=== PATIENT | male | born 1995 | race Caucasian/White ===

== ENCOUNTER 2017-09-02 22:13 | Emergency (ER) | payer SELFPAY ==
[~2017-09-02] VITALS: Ht 182.9 cm; Wt 146.5 kg
[~2017-09-02 22:13] MED LIST: ALB18R INH; BENZ100C4 PO; HYDR-4309 PO; PROM-110 PO; SULF-198 PO
--- NOTE | 2017-09-02 22:17 | ER Report ---
History and Physical Time Seen By MD: 22:17 HPI/ROS CHIEF COMPLAINT: Cough, shortness of breath HISTORY OF PRESENT ILLNESS: 21-year-old male. The history of asthma, now ill for 3 days with a productive cough of colored sputum and increased work effort. On arrival. He's having severe difficulty breathing. His pulse ox is 88%. He denies exposure to ill contacts. He is a former smoker who is using vape pen now. REVIEW OF SYSTEMS: Respiratory: As above Cardiovascular: No chest pain, no palpitations. Gastrointestinal: No vomiting, no abdominal pain. Musculoskeletal: No back pain. Allergies: Coded Allergies: No Known Drug Allergies (Unverified , 09/02/17) Home Meds Active Scripts Albuterol Sulfate 90 Mcg/Act (PROAIR HFA 90 MCG/ACT) 8.5 Gm Hfa.aer.ad, 2 PUFF IH Q4-6H Y for asthma symptoms, #1 INHALER 1 Refill Prov:ANUPAMA HERNÁNDEZ DO 09/02/17 Prednisone (PREDNISONE) 20 Mg Tablet, 20 MG PO QDAY for reduce lung inflammation , #9 2 tablets by mouth daily 3 days then 1 by mouth daily 3 days Prov:ANUPAMA HERNÁNDEZ 09/02/17 Promethazine HCl/Codeine (Promethazine-Codeine Syrup) 6.25 Mg-10 Mg/5 Ml Syrup, 5-10 ML PO Q4H Y for cough or pain reduction, #120 Prov:ANUPAMA HERNÁNDEZ 09/02/17 Cefuroxime Axetil (CEFUROXIME) 500 Mg Tablet, 500 MG PO BID for infection, #14 TAB Prov:ANUPAMA HERNÁNDEZ DO 09/02/17 Discontinued Scripts Sulfamethoxazole/Trimet 800-160 Mg Tab (BACTRIM DS TABLET) 1 Each Tablet, 1 TAB PO Q12H, #20 TAB 0 Refills Prov:KATHY ROGERS MD 12/19/16 Reviewed Nurses Notes: Yes Old Medical Records Reviewed: Yes Hx Substance Use Disorder: No Constitutional Vital Sign - Last 24 Hours 09/02/17 09/02/17 09/02/17 09/02/17 22:15 22:16 22:30 22:35 Temp 98.9 Pulse 112 106 Resp 22 26 B/P (MAP) 154/91 (112) 154/91 126/93 (104) Pulse Ox 86 85 89 O2 Delivery Room Air 09/02/17 09/02/17 09/02/17 09/02/17 22:35 22:42 22:45 23:00 Pulse 103 106 102 Resp 16 16 29 B/P (MAP) 136/76 (96) Pulse Ox 98 09/02/17 09/02/17 09/03/17 23:15 23:30 00:00 Pulse 99 95 95 Resp 14 B/P (MAP) 124/78 (93) 140/86 (104) Pulse Ox 88 87 93 O2 Delivery Room Air Physical Exam Vital signs stable, afebrile, pulse ox normal General Appearance: The patient is alert, has no immediate need for airway protection and no current signs of toxicity. HEENT: Pupils equal and round no injection. TMs normal, oropharynx with moderate erythema, no exudate or petechiae Respiratory: Chest is non tender, expiratory wheezing, no Rales or rhonchi Cardiac: regular rate and rhythm Gastrointestinal: Abdomen is soft and non tender, no masses, bowel sounds normal. Musculoskeletal: Neck: Neck is supple and non tender. No lymphadenopathy Extremities have full range of motion and are non tender. Skin: No rashes or lesions. DIFFERENTIAL DIAGNOSIS: After history and physical exam differential diagnosis was considered for shortness of breath including but not limited to pulmonary infectious process, COPD, asthma, pulmonary embolus and congestive heart failure. Medical Decision Making Data Points Laboratory Hematology Test 09/02/17 23:01 Influenza Virus Type A (PCR) Negative (NEGATIVE) Influenza Virus Type B (PCR) Negative (NEGATIVE) Chemistry Test 09/02/17 23:01 Influenza Virus Type A (PCR) Negative (NEGATIVE) Influenza Virus Type B (PCR) Negative (NEGATIVE) EKG/Imaging Imaging X-ray: Two-view chest x-ray was obtained. I viewed the images myself on the PACS system. My interpretation of the images is: No infiltrate, no effusion, normal mediastinum. The radiologist interpretation had no clinically significant variation from this interpretation. ED Course/Re-evaluation ED Course Patient was minute to an examination room. H&P was done. The dental diagnoses was considered. Patient with severe asthma exacerbation with bronchitis and productive cough of green sputum. He has increased work of breathing. He has expiratory wheezing on examination. He is much improved after prednisone 60 mg by mouth and 2 DuoNeb. Chest x-ray shows no obvious infiltrate. His saturations improved his work of breathing is much improved. Patient be discharged home on Ceftin, prednisone and Phenergan with codeine syrup to suppress the cough. He is given a refill of his of 8 inhalers. He is advised to follow-up with primary care if unimproved in 3-5 days. Decision to Disposition Date: Sep 02, 2017 Decision to Disposition Time: 23:25 Depart Departure Latest Vital Signs Vital Signs Date Time Temp Pulse Resp B/P (MAP) Pulse Ox O2 Delivery O2 Flow Rate FiO2 09/03/17 00:00 95 14 140/86 (104) 93 Room Air 09/02/17 22:16 98.9 Impression: Primary Impression: Acute bronchitis Additional Impressions: Asthma exacerbation Hypoxia Condition: Improved Disposition: HOME OR SELF-CARE New Scripts Albuterol Sulfate 90 Mcg/Act (PROAIR HFA 90 MCG/ACT) 8.5 Gm Hfa.aer.ad 2 PUFF IH Q4-6H Y for asthma symptoms, #1 INHALER 1 Refill Prov: ANUPAMA HERNÁNDEZ DO 09/02/17 Prednisone (PREDNISONE) 20 Mg Tablet 20 MG PO QDAY for reduce lung inflammation, #9 2 tablets by mouth daily 3 days then 1 by mouth daily 3 days Prov: ANUPAMA HERNÁNDEZ DO 09/02/17 Promethazine HCl/Codeine (Promethazine-Codeine Syrup) 6.25 Mg-10 Mg/5 Ml Syrup 5-10 ML PO Q4H Y for cough or pain reduction, #120 Prov: ANUPAMA HERNÁNDEZ DO 09/02/17 Cefuroxime Axetil (CEFUROXIME) 500 Mg Tablet 500 MG PO BID for infection, #14 TAB Prov: ANUPAMA HERNÁNDEZ DO 09/02/17 Patient Instructions: Acute Bronchitis (ED), Asthma (ED) Additional Instructions: Take DayQuil in the morning and afternoon and NyQuil at bedtime Follow-up with your primary care if unimproved in 3-5 days or go to the physician listed on your paperwork Problem Qualifiers Primary Impression: Acute bronchitis Bronchitis organism: unspecified organism Qualified Codes: J20.9 - Acute bronchitis, unspecified Additional Impressions: Asthma exacerbation Asthma severity: mild Asthma persistence: intermittent Qualified Codes: J45.21 - Mild intermittent asthma with (acute) exacerbation ANUPAMA HERNÁNDEZ DO Sep 02, 2017 22:17
[2017-09-02] MEDS ORDERED: predniSONE 20 MG TAB PO ONE (22:30)
[2017-09-02] MEDS ORDERED: ONDANSETRON 4 MG ODT TABDP SL ONE (22:30)
[2017-09-02] MEDS ORDERED: ALBUTEROL/IPRATROPIUM 3 ML NEB NEB ONE (22:30)
--- NOTE | 2017-09-02 23:28 | RADIOLOGY IMAGING REPORT ---
FACILITY: [facility] - [place] PATIENT NAME: Irineo Shepard : 1995 MR: [id number] V: [id number] EXAM DATE: ORDERING PHYSICIAN: ANUPAMA HERNÁNDEZ TECHNOLOGIST: Location: [facility] Patient: Irineo Shepard : 1995 Visit/Account:[id number] Date of Sevice: 09/02/2017 CHEST PA AND LATERAL 09/02/2017 10:27 PM. INDICATION: Asthma, hypoxia. Cough for 2 weeks. COMPARISON: 10/14/2016. FINDINGS: Lungs are well-expanded. The lungs are clear. No pneumothorax or pleural effusion. Pulmo nary vasculature is unremarkable. Heart size is normal. IMPRESSION: No acute cardiopulmonary abnormality. Report Dictated By: Irineo Zuniga MD at 09/02/2017 11:23 PM Report E-Signed By: Irineo Zuniga MD at 09/02/2017 11:24 PM WSN:[id number]
[2017-09-02] MEDS ORDERED: CEFU500T10 PO (23:29)
[2017-09-02] MEDS ORDERED: ALBU8.5H IH (23:29)
[2017-09-02] MEDS ORDERED: PRED20TA6 PO (23:29)
[2017-09-02] MEDS ORDERED: CODE118S5 PO (23:29)
[2017-09-02] MEDS ORDERED: CEFDINIR 300 MG CAP PO ONE (23:35)
[2017-09-02] MEDS ORDERED: PROMETH/COD SYRP 6.25-10MG/5ML PO ONE (23:35)
[2017-09-03] VITALS: BP 140/86
== END 2017-09-03 | disposition home or self-care (01) ==
LOC: ER 22:22
DX: J20.9 Acute bronchitis, unspecified (principal); J45.21 Mild intermittent asthma with (acute) exacerbation; R09.02 Hypoxemia
CPT/HCPCS: 71046; 87502; 94640; 99283; J7512; J7620; S0119

== ENCOUNTER 2017-12-24 04:25 | Emergency (ER) | payer SELFPAY ==
[~2017-12-24 04:25] MED LIST changes: +ALBU8.5H IH; +CEFU500T10 PO; +CODE118S5 PO; +PRED20TA6 PO
[2017-12-24 04:29] VITALS: BP 123/81
--- NOTE | 2017-12-24 04:32 | ER Report ---
History and Physical Time Seen By MD: 04:28 HPI/ROS CHIEF COMPLAINT: Bilateral eye pain HISTORY OF PRESENT ILLNESS: 22-year-old male contact wear forgot to rinse out his contact lenses and he placed him in his eyes for 10 hours with the hydrogen peroxide sterilization solution on them. He later removed his contact lenses and noted burning in his eyes. He's irrigated his eyes with warm water and saline but the continued to burn and are getting worse over the last 6 hours. He's had some tearing. He notes no mattering. He has blurry vision. Allergies: Coded Allergies: No Known Drug Allergies (Unverified , 12/24/17) Home Meds Active Scripts Albuterol Sulfate 90 Mcg/Act (PROAIR HFA 90 MCG/ACT) 8.5 Gm Hfa.aer.ad, 2 PUFF IH Q4-6H Y for asthma symptoms, #1 INHALER 1 Refill Prov:ANUPAMA HERNÁNDEZ DO 09/02/17 Discontinued Scripts Prednisone (PREDNISONE) 20 Mg Tablet, 20 MG PO QDAY for reduce lung inflammation , #9 2 tablets by mouth daily 3 days then 1 by mouth daily 3 days Prov:ANUPAMA HERNÁNDEZ 09/02/17 Promethazine HCl/Codeine (Promethazine-Codeine Syrup) 6.25 Mg-10 Mg/5 Ml Syrup, 5-10 ML PO Q4H Y for cough or pain reduction, #120 Prov:ANUPAMA HERNÁNDEZ DO 09/02/17 Cefuroxime Axetil (CEFUROXIME) 500 Mg Tablet, 500 MG PO BID for infection, #14 TAB Prov:ANUPAMA HERNÁNDEZ 09/02/17 Reviewed Nurses Notes: Yes Old Medical Records Reviewed: Yes Hx Substance Use Disorder: No Constitutional Vital Sign - Last 24 Hours 12/24/17 04:29 Temp 98.7 Pulse 78 Resp 17 B/P (MAP) 123/81 Pulse Ox 93 O2 Delivery Room Air Physical Exam Vital signs stable, afebrile, pulse ox normal, visual acuity is noted General appearance: Mild distress. HEENT: Eyes are injected bilaterally with tearing. Fluoresceins stain is instilled. There is significant uptake at the 9 o'clock position in the right eye. Otherwise, there is general haze over both corneas consistent with keratitis. Respiratory: Chest is non tender, lungs are clear to auscultation. Cardiac: Regular rate and rhythm DIFFERENTIAL DIAGNOSIS: After history and physical exam differential diagnosis was considered for contact keratitis, conjunctivitis, chemical arzola secondary to sterile lysing agent, contact ulcer Medical Decision Making ED Course/Re-evaluation ED Course Patient was admitted to an examination room. H&P was done. The dental diagnoses was considered. On conical examination. Patient has foreseen uptake in the right eye at the 9 o'clock position. There is general fogginess to the cornea. Patient pain is significantly improved with proparacaine drops. Patient be discharged on Tobrex drops 3 times a day. Patient advised not to wear his contacts for several days. Patient advised to follow up with his proprietary trader if unimproved in 2-3 days. Decision to Disposition Date: Dec 24, 2017 Decision to Disposition Time: 04:51 Depart Departure Latest Vital Signs Vital Signs Date Time Temp Pulse Resp B/P (MAP) Pulse Ox O2 Delivery O2 Flow Rate FiO2 12/24/17 04:29 98.7 78 17 123/81 93 Room Air Impression: Primary Impression: Keratitis secondary to contact lens Condition: Improved Disposition: HOME OR SELF-CARE Referrals: DEQUAN MCCAIN MD Patient Instructions: Keratitis (ED) Additional Instructions: Take ibuprofen and Tylenol as needed for pain relief Use proparacaine drops for additional pain relief as necessary. Avoid rubbing your eyes,you can damage your cornea Use Tobrex drops 1 drop 2-3 times a day in each eye Follow-up with your eye doctor or proprietary trader if unimproved in 2-3 days ANUPAMA HERNÁNDEZ DO Dec 24, 2017 04:31
[2017-12-24] MEDS ORDERED: FLUORESCEIN SOD 1 MG 1 EA STRP OD ONE (04:35)
[2017-12-24] MEDS ORDERED: PROPARACAINE 0.5% OP 15ML BTL OU ONE (04:35)
[2017-12-24] MEDS ORDERED: FLUORESCEIN SOD 1 MG 1 EA STRP OS ONE (04:35)
[2017-12-24] MEDS ORDERED: TOBRAMYCIN/DEX OP SUSP 2.5 ML OU ONE (04:45)
== END 2017-12-24 05:01 | disposition home or self-care (01) ==
LOC: ER 04:31
DX: H16.9 Unspecified keratitis (principal)
CPT/HCPCS: 99283

== ENCOUNTER 2018-03-26 09:20 | Emergency (ER) | payer SELFPAY ==
[2018-03-26] MEDS ORDERED: ALBUTEROL/IPRATROPIUM 3 ML NEB ONE (09:31)
--- NOTE | 2018-03-26 09:39 | ER Report ---
History and Physical Time Seen By MD: 09:38 Hx. of Stated Complaint: COLD COUGH CHEST CONGESTION WITH SHORTNESS OF BREATHE HPI/ROS 22-year-old male with a history of asthma presents to the emergency department with a cough and wheezing for the past 4 days. He has not been using his albuterol inhaler. Has not been on steroids in more than a year he states. He thinks he may have been hospitalized once as a child, but never intubated. He denies fever chills. Denies chest pain. No PE risk factors. Allergies: Coded Allergies: No Known Drug Allergies (Unverified , 03/26/18) Home Meds Active Scripts Albuterol Sulfate 90 Mcg/Act (PROAIR HFA 90 MCG/ACT) 8.5 Gm Hfa.aer.ad, 2 PUFF IH Q4-6H PRN for asthma symptoms, #1 INHALER 1 Refill Prov:EDGARBRAXTONEnid Charles DO 09/02/17 Hx Smoking: No Hx Substance Use Disorder: No Constitutional Vital Sign - Last 24 Hours 03/26/18 03/26/18 03/26/18 03/26/18 09:26 09:27 09:30 09:30 Temp 98.0 Pulse 80 78 Resp 18 16 B/P (MAP) 122/82 (95) 122/82 Pulse Ox 90 91 O2 Delivery Room Air Room Air 03/26/18 03/26/18 03/26/18 03/26/18 09:35 09:38 09:50 10:02 Pulse 77 86 76 Resp 16 B/P (MAP) 133/73 (93) Pulse Ox 98 91 O2 Delivery Room Air Room Air 03/26/18 03/26/18 03/26/18 03/26/18 10:05 10:20 10:30 10:35 Pulse 80 72 67 B/P (MAP) 116/76 (89) Pulse Ox 91 90 90 O2 Delivery Room Air Room Air Room Air 03/26/18 03/26/18 03/26/18 03/26/18 10:50 11:00 11:05 11:10 Pulse 85 71 70 B/P (MAP) 104/67 (79) Pulse Ox 93 93 94 O2 Delivery Room Air Room Air Room Air 03/26/18 03/26/18 03/26/18 03/26/18 11:30 11:40 12:00 12:10 Pulse 51 B/P (MAP) 105/60 (75) 99/82 (88) Pulse Ox 90 92 O2 Delivery Room Air Room Air 03/26/18 03/26/18 03/26/18 03/26/18 12:10 12:10 12:15 12:16 Pulse 82 61 81 82 Resp 16 16 Pulse Ox 87 98 O2 Delivery Room Air Room Air 03/26/18 03/26/18 12:30 12:45 Pulse 83 B/P (MAP) 130/70 (90) Pulse Ox 91 O2 Delivery Room Air Physical Exam General Appearance: The patient is alert, has no immediate need for airway protection and no current signs of toxicity. Eyes: Pupils equal and round no injection. Respiratory: Chest is non tender, scattered wheezing throughout with good air movement Cardiac: regular rate and rhythm Neck: Neck is supple and non tender. Extremities have full range of motion and are non tender. Skin: No rashes or lesions. DIFFERENTIAL DIAGNOSIS: After history and physical exam differential diagnosis was considered for shortness of breath including but not limited to pulmonary infectious process, COPD, asthma, pulmonary embolus and congestive heart failure. Medical Decision Making ED Course/Re-evaluation ED Course Uncomplicated asthma exacerbation either from a viral upper respiratory inf ection or from allergens such as smoke from fires that of pain in the area. He feels much improved after 2 nebulizer treatments. Chest x-ray is negative for acute infiltrate. He was given 1 dose of Decadron. I counseled him to use his albuterol inhaler as needed, and encouraged him to start taking an allergy medication such as Zyrtec or his symptoms continued. Decision to Disposition Date: Mar 26, 2018 Decision to Disposition Time: 13:41 Depart Departure Latest Vital Signs Vital Signs Date Time Temp Pulse Resp B/P (MAP) Pulse Ox O2 Delivery O2 Flow Rate FiO2 03/26/18 12:45 83 91 Room Air 03/26/18 12:30 130/70 (90) 03/26/18 12:16 16 03/26/18 09:27 98.0 Impression: Primary Impression: Asthma exacerbation Condition: Improved Disposition: HOME OR SELF-CARE Patient Instructions: Asthma (ED) GABINO DONAHUE MD Mar 26, 2018 09:39
--- NOTE | 2018-03-26 09:48 | EKG ---
FACILITY: [facility] PATIENT NAME: ESTUARDO ZEPEDA : [id number] MR: [id number]: [id number] EXAM DATE: ORDERING PHYSICIAN: GABINO DONAHUE TECHNOLOGIST: PARMJIT Rivera Reason : CP Blood Pressure : / mmHG Vent. Rate : 080 BPM Atrial Rate : 080 BPM P-R Int : 138 ms QRS Dur : 082 ms QT Int : 360 ms P-R-T Axes : 028 068 027 degrees QTc Int : 415 ms Normal sinus rhythm Normal ECG No previous ECGs available Confirmed by TRACE MAC ([id number]) on 03/26/2018 4:24:54 PM Referred By: ROWAN Confirmed By:TRACE MAC
[2018-03-26] MEDS ORDERED: ALBUTEROL/IPRATROPIUM 3 ML NEB NEB ONE (09:55)
--- NOTE | 2018-03-26 10:21 | RADIOLOGY IMAGING REPORT ---
FACILITY: [facility] PATIENT NAME: Irineo Shepard : 1995 MR: [id number] V: [id number] EXAM DATE: ORDERING PHYSICIAN: GABINO DONAHUE TECHNOLOGIST: Location: [facility] [place] Patient: Irineo Shepard : 1995 Visit/Account:[id number] Date of Sevice: 03/26/2018 Chest 2 views: HISTORY: Shortness of breath, cough, tightness in chest x1 week. COMPARISON: 09/02/2017 FINDINGS: Frontal and lateral chest: Cardiomediastinal silhouette is within normal limits. There is n o infiltrate or pleural effusion. No pneumothorax. Pulmonary vasculature is normal. Osseous structures are unremarkable for age. IMPRESSION: No evidence of acute cardiopulmonary abnormality. Report Dictated By: Roseanne Davila MD at 03/26/2018 10:16 AM Report E-Signed By: Roseanne Davila MD at 03/26/2018 10:18 AM WSN:[id number]
[2018-03-26 12:30] VITALS: BP 130/70
[2018-03-26] MEDS ORDERED: DEXAMETHASONE 4 MG TAB PO ONE (13:40)
== END 2018-03-26 13:46 | disposition home or self-care (01) ==
LOC: ER 09:40
DX: J45.901 Unspecified asthma with (acute) exacerbation (principal)
CPT/HCPCS: 71046; 93005; 94640; 99284; J7620; J8540

== ENCOUNTER 2018-05-12 16:33 | Emergency (ER) | payer SELFPAY ==
[~2018-05-12 16:33] MED LIST changes: -HYDR-4309 PO; +HYDR-653 PO
--- NOTE | 2018-05-12 16:56 | ER Report ---
History and Physical Time Seen By MD: 16:50 Hx. of Stated Complaint: NAUSEA VOMITING STABBING PAIN IN L SIDE ABDO HPI/ROS CHIEF COMPLAINT: Abdominal pain HISTORY OF PRESENT ILLNESS: This is a 22-year-old male who presents to the emergency department for abdominal pain. Patient states that this morning around 7:00 when he woke up he had some left-sided abdominal pain, he did have a bowel movement which was normal however did have blood one stool, not bright red but not extremely dark either. Patient's does have a history of polyps, unsure of his family history is he does not know his father, his mother when he was young and was raised by his grandmother who has passed as well. 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 Patient also states he's been under increased stress recently at work. No dysuria. No fevers or chills. He does have nausea no vomiting. REVIEW OF SYSTEMS: Constitutional: No fever, no chills. Eyes: No discharge. ENT: No sore throat. Cardiovascular: No chest pain, no palpitations. Respiratory: No cough, no shortness of breath. Gastrointestinal: As above. Genitourinary: No hematuria. Musculoskeletal: No back pain. Skin: No rashes. Neurological: No headache. Allergies: Coded Allergies: No Known Drug Allergies (Unverified , 03/26/18) Home Meds Active Scripts Ondansetron (ZOFRAN ODT) 4 Mg Tab.rapdis, 4 MG PO Q6H PRN for NAUSEA/VOMITING, #20 TAB.LISA 0 Refills Prov:EMY GARCIA INCINERATOR OPERATOR-BC 05/12/18 Albuterol Sulfate 90 Mcg/Act (PROAIR HFA 90 MCG/ACT) 8.5 Gm Hfa.aer.ad, 2 PUFF IH Q4-6H PRN for asthma symptoms, #1 INHALER 1 Refill Prov:ANUPAMA HERNÁNDEZ DO 09/02/17 Past Medical/Surgical History The patient has a past medical and surgical history of wearing glasses, asthma, right knee and right shoulder surgery, depression. Reviewed Nurses Notes: Yes Hx Smoking: No Hx Substance Use Disorder: No Constitutional Vital Sign - Last 24 Hours 05/12/18 05/12/18 05/12/18 05/12/18 16:44 16:47 16:48 17:03 Temp 98.5 Pulse 82 79 84 Resp 16 B/P (MAP) 123/67 123/67 (85) Pulse Ox 92 92 91 O2 Delivery Room Air 05/12/18 05/12/18 05/12/18 05/12/18 17:18 17:20 17:30 17:33 Pulse ??? 87 B/P (MAP) 114/69 (84) 132/67 (88) Pulse Ox 92 92 05/12/18 05/12/18 05/12/18 05/12/18 17:48 18:00 18:03 18:18 Pulse 76 71 70 B/P (MAP) 122/58 (79) Pulse Ox 93 93 93 05/12/18 18:30 B/P (MAP) 111/54 (73) Physical Exam General Appearance: The patient is alert, has no immediate need for airway protection and no signs of toxicity. Eyes: Pupils equal and round no pallor or injection. ENT, Mouth: Mucous membranes are moist. Respiratory: There are no retractions, lungs are clear to auscultation. Cardiovascular: Regular rate and rhythm. Gastrointestinal: Abdomen is round, soft, with tenderness to the left upper and lower quadrants with palpation, no masses, bowel sounds normal. Neurological: Alert and oriented 4. Moving all extremities. Following all c ommands. No focal neuro deficits. Skin: Warm and dry, no rashes. Musculoskeletal: Neck is supple non tender. Extremities are nontender, nonswollen and have full range of motion. DIFFERENTIAL DIAGNOSIS: After history and physical exam differential diagnosis was considered for abdominal pain including but not limited to appendicitis, cholecystitis, gastritis and urinary tract infection. Medical Decision Making Data Points Result Diagram: 05/12/18 1720 05/12/18 1720 Laboratory Hematology Test 05/12/18 16:45 05/12/18 17:20 Urine Color Straw Urine Clarity Clear Urine pH 7.0 pH (4.8-9.5) Urine Specific [place] 1.010 Urine Protein Negative mg/dL (NEGATIVE) Urine Glucose (UA) Negative mg/dL (NEGATIVE) Urine Ketones Negative mg/dL (NEGATIVE) Urine Blood Negative (NEGATIVE) Urine Nitrite Negative (NEGATIVE) Urine Bilirubin Negative (NEGATIVE) Urine Urobilinogen Negative mg/dL (0.2-1.9) Urine Leukocyte Esterase Negative (NEGATIVE) Urine RBC None /HPF (0-2/HPF) Urine WBC <1 /HPF (0-5/HPF) Urine Squamous Epithelial Cells None /LPF (</=FEW) Urine Bacteria Negative /HPF (NONE-FEW) Urine Mucus None /HPF (NONE-FEW) Red Blood Count 6.07 M/uL (4.00-5.60) Mean Corpuscular Volume 81.9 fL (80.0-96.0) Mean Corpuscular Hemoglobin 28.1 pg (26.0-33.0) Mean Corpuscular Hemoglobin Concent 34.3 g/dL (32.0-36.0) Red Cell Distribution Width 13.1 % (11.5-14.5) Mean Platelet Volume 10.4 fL (7.2-11.1) Neutrophils (%) (Auto) 55.2 % (39.4-72.5) Lymphocytes (%) (Auto) 30.5 % (17.6-49.6) Monocytes (%) (Auto) 6.6 % (4.1-12.4) Eosinophils (%) (Auto) 6.6 % (0.4-6.7) Basophils (%) (Auto) 1.1 % (0.3-1.4) Nucleated RBC Relative Count (auto) 0.1 /100WBC Neutrophils # (Auto) 6.8 K/uL (2.0-7.4) Lymphocytes # (Auto) 3.7 K/uL (1.3-3.6) Monocytes # (Auto) 0.8 K/uL (0.3-1.0) Eosinophils # (Auto) 0.8 K/uL (0.0-0.5) Basophils # (Auto) 0.1 K/uL (0.0-0.1) Nucleated RBC Absolute Count (auto) 0.01 K/uL Sodium Level 140 mmol/L (137-145) Potassium Level 3.9 mmol/L (3.5-5.0) Chloride Level 108 mmol/L (98-107) Carbon Dioxide Level 23 mmol/L (22-30) Blood Urea Nitrogen 13 mg/dl (9-21) Creatinine 1.10 mg/dl (0.66-1.25) Glomerular Filtration Rate Calc > 60.0 Random Glucose 89 mg/dl (75-110) Calcium Level 8.9 mg/dl (8.4-10.2) Total Bilirubin 0.4 mg/dl (0.2-1.3) Aspartate Amino Transf (AST/SGOT) 43 U/L (0-35) Alanine Aminotransferase (ALT/SGPT) 83 U/L (0-56) Alkaline Phosphatase 42 U/L (0-126) Total Protein 7.2 g/dl (6.3-8.2) Albumin 4.1 g/dl (3.5-5.0) Lipase 146 U/L (23-300) Chemistry Test 05/12/18 16:45 05/12/18 17:20 Urine Color Straw Urine Clarity Clear Urine pH 7.0 pH (4.8-9.5) Urine Specific [place] 1.010 Urine Protein Negative mg/dL (NEGATIVE) Urine Glucose (UA) Negative mg/dL (NEGATIVE) Urine Ketones Negative mg/dL (NEGATIVE) Urine Blood Negative (NEGATIVE) Urine Nitrite Negative (NEGATIVE) Urine Bilirubin Negative (NEGATIVE) Urine Urobilinogen Negative mg/dL (0.2-1.9) Urine Leukocyte Esterase Negative (NEGATIVE) Urine RBC None /HPF (0-2/HPF) Urine WBC <1 /HPF (0-5/HPF) Urine Squamous Epithelial Cells None /LPF (</=FEW) Urine Bacteria Negative /HPF (NONE-FEW) Urine Mucus None /HPF (NONE-FEW) White Blood Count 12.2 k/uL (4.5-11.0) Red Blood Count 6.07 M/uL (4.00-5.60) Hemoglobin 17.1 g/dL (14.0-18.0) Hematocrit 49.7 % (42.0-52.0) Mean Corpuscular Volume 81.9 fL (80.0-96.0) Mean Corpuscular Hemoglobin 28.1 pg (26.0-33.0) Mean Corpuscular Hemoglobin Concent 34.3 g/dL (32.0-36.0) Red Cell Distribution Width 13.1 % (11.5-14.5) Platelet Count 201 K/uL (150-450) Mean Platelet Volume 10.4 fL (7.2-11.1) Neutrophils (%) (Auto) 55.2 % (39.4-72.5) Lymphocytes (%) (Auto) 30.5 % (17.6-49.6) Monocytes (%) (Auto) 6.6 % (4.1-12.4) Eosinophils (%) (Auto) 6.6 % (0.4-6.7) Basophils (%) (Auto) 1.1 % (0.3-1.4) Nucleated RBC Relative Count (auto) 0.1 /100WBC Neutrophils # (Auto) 6.8 K/uL (2.0-7.4) Lymphocytes # (Auto) 3.7 K/uL (1.3-3.6) Monocytes # (Auto) 0.8 K/uL (0.3-1.0) Eosinophils # (Auto) 0.8 K/uL (0.0-0.5) Basophils # (Auto) 0.1 K/uL (0.0-0.1) Nucleated RBC Absolute Count (auto) 0.01 K/uL Glomerular Filtration Rate Calc > 60.0 Calcium Level 8.9 mg/dl (8.4-10.2) Total Bilirubin 0.4 mg/dl (0.2-1.3) Aspartate Amino Transf (AST/SGOT) 43 U/L (0-35) Alanine Aminotransferase (ALT/SGPT) 83 U/L (0-56) Alkaline Phosphatase 42 U/L (0-126) Total Protein 7.2 g/dl (6.3-8.2) Albumin 4.1 g/dl (3.5-5.0) Lipase 146 U/L (23-300) Urinalysis Test 05/12/18 16:45 Urine Color Straw Urine Clarity Clear Urine pH 7.0 pH (4.8-9.5) Urine Specific [place] 1.010 Urine Protein Negative mg/dL (NEGATIVE) Urine Glucose (UA) Negative mg/dL (NEGATIVE) Urine Ketones Negative mg/dL (NEGATIVE) Urine Blood Negative (NEGATIVE) Urine Nitrite Negative (NEGATIVE) Urine Bilirubin Negative (NEGATIVE) Urine Urobilinogen Negative mg/dL (0.2-1.9) Urine Leukocyte Esterase Negative (NEGATIVE) Urine RBC None /HPF (0-2/HPF) Urine WBC <1 /HPF (0-5/HPF) Urine Squamous Epithelial Cells None /LPF (</=FEW) Urine Bacteria Negative /HPF (NONE-FEW) Urine Mucus None /HPF (NONE-FEW) EKG/Imaging Imaging Location: [facility] Patient: Irineo Shepard : 1995 Visit/Account:[id number] Date of Sevice: 05/12/2018 ABDOMEN/PELVIS WITH CONTRAST COMPARISONS: None. ADDITIONAL PERTINENT HISTORY: Abdominal pain with blood in stool TECHNIQUE: Multiple axial images were obtained from the lung bases through the lesser trochanters after the IV administration of IV contrast. One of the following dose optimization techniques was utilized in the performance of this exam: Automated exposure control; adjustment of the mA and/or kV according to the patient's size; or use of an iterative reconstruction technique. Specific details can be referenced in the facility's radiology CT exam operational policy. CONTRAST: 75 ml of Isovue-370 FINDINGS: Lung bases: Negative. Free air and free fluid: None. Liver: Fatty infiltration of the liver. Otherwise negative Spleen: Negative. Kidneys, ureters and urinary bladder: Negative. Adrenal glands: Negative. Pancreas: Negative. Gallbladder: Negative. Bowel and mesentery: Negative.. Pelvic contents: Negative Lymph node assessment: Negative. Retroperitoneum: Negative. Abdominal vasculature: Negative. Surrounding soft tissues: Negative. Osseous structures: Negative. IMPRESSION: No evidence of acute intra-abdominal or intrapelvic process. Report Dictated By: Simeon Brumfield MD at 05/12/2018 5:50 PM Report E-Signed By: Simeon Brumfield MD at 05/12/2018 5:55 PM WSN:[id number] ED Course/Re-evaluation Clinical Indication for ER IV: Hydration, IV Access ED Course The patient was admitted to a room. A history of a scorpion. Differential diagnoses were considered. An IV was started. A CBC, CMP and lipase were obtained. CT of the abdomen pelvis was negative for any acute intra-abdominal abnormalities. CBC showing white count of 12.2, No left shift, could be secondary to vomiting, AST 43, ALT 83 negative UA. I did review these results with the patient. Did tell the patient that this could be an early onset gastroenteritis, I did however recommend that he establishes with and follows up with primary care provider within the next 1-2 weeks for reevaluation. Return to the ER for any other concerns or worsening symptoms. I also recommended fo llowing up with Dr. Lee so that they can discuss the possibilities of a colonoscopy. Patient expressed understanding and was discharged home. I also recommended dietary changes and increased water intake. Patient was receptive to this. Decision to Disposition Date: May 12, 2018 Decision to Disposition Time: 18:39 Depart Departure Latest Vital Signs Vital Signs Date Time Temp Pulse Resp B/P (MAP) Pulse Ox O2 Delivery O2 Flow Rate FiO2 05/12/18 18:30 111/54 (73) 05/12/18 18:18 70 93 05/12/18 16:44 98.5 16 Room Air Impression: Primary Impression: Abdominal pain Condition: Improved Disposition: HOME OR SELF-CARE Referrals: TRACE GRANDA MD New Scripts Ondansetron (ZOFRAN ODT) 4 Mg Tab.rapdis 4 MG PO Q6H PRN for NAUSEA/VOMITING, #20 TAB.LISA 0 Refills Prov: EMY GARCIA-BC 05/12/18 Patient Instructions: Abdominal Pain (ED) Additional Instructions: There is no evidence of infectious process on your CT scan today. Blood work looks okay. I would recommend establishing with and following up with a primary care provider within the next 1-2 weeks for reevaluation. I would also recommend following up with Dr. Lee for discussion of colonoscopy. I would also recommend adjusting your dietary habits, increasing fruits and vegetables and decreasing fast food. This could be an early gastroenteritis, he may end up with diarrhea, if you do the sure the keep up on your fluid intake. Take Zofran as needed for nausea and vomiting. Return to the emergency department for any other concerns or worsening symptoms. Problem Qualifiers Primary Impression: Abdominal pain Abdominal location: left lower quadrant Qualified Codes: R10.32 - Left lower quadrant pain EMY GARCIA INCINERATOR OPERATOR-BC May 12, 2018 16:56
[2018-05-12] MEDS ORDERED: ONDANSETRON 4 MG/2 ML VIAL IVP ONE (17:05)
[2018-05-12] MEDS ORDERED: NS(*) 0.9% 1000 ML BAG 1,000 ML IV ONE (17:05)
[2018-05-12] MEDS ORDERED: IOPAMIDOL 76% 75 ML INFUS BTL 75 ML ONE (17:21)
[2018-05-12 17:34] LABS: PLATELET COUNT, AUTOMATED 201 K/uL (150-450)
--- NOTE | 2018-05-12 18:00 | RADIOLOGY IMAGING REPORT ---
FACILITY: [facility] [place] PATIENT NAME: Irineo Shepard : 1995 MR: [id number] V: [id number] EXAM DATE: ORDERING PHYSICIAN: EMY GARCIA TECHNOLOGIST: Location: [facility] Patient: Irineo Shepard : 1995 Visit/Account:[id number] Date of Sevice: 05/12/2018 ABDOMEN/PELVIS WITH CONTRAST COMPARISONS: None. ADDITIONAL PERTINENT HISTORY: Abdominal pain with blood in stool TECHNIQUE: Multiple axial images were obtained from the lung bases through the lesser trochanters aft er the IV administration of IV contrast. One of the following dose optimization techniques was utili zed in the performance of this exam: Automated exposure control; adjustment of the mA and/or kV accor ding to the patient's size; or use of an iterative reconstruction technique. Specific details can b e referenced in the facility's radiology CT exam operational policy. CONTRAST: 75 ml of Isovue-370 FINDINGS: Lung bases: Negative. Free air and free fluid: None. Liver: Fatty infiltration of the liver. Otherwise negative Spleen: Negative. Kidneys, ureters and urinary bladder: Negative. Adrenal glands: Negative. Pancreas: Negative. Gallbladder: Negative. Bowel and mesentery: Negative.. Pelvic contents: Negative Lymph node assessment: Negative. Retroperitoneum: Negative. Abdominal vasculature: Negative. Surrounding soft tissues: Negative. Osseous structures: Negative. IMPRESSION: No evidence of acute intra-abdominal or intrapelvic process. Report Dictated By: Simeon Brumfield MD at 05/12/2018 5:50 PM Report E-Signed By: Simeon Brumfield MD at 05/12/2018 5:55 PM WSN:[id number]
[2018-05-12 18:30] VITALS: BP 111/54
[2018-05-12] MEDS ORDERED: ONDA4TAB PO (18:42)
== END 2018-05-12 19:02 | disposition home or self-care (01) ==
LOC: ER 16:48
DX: R10.32 Left lower quadrant pain (principal)
CPT/HCPCS: 81001; 83690; 85025; 96361; 96374; 99284; J2405; J7030; Q9967; 74177; 82040; 82247; 82310; 82374; 82435; 82565; 82947; 84075; 84132; 84155; 84295; 84450; 84460; 84520

== ENCOUNTER 2018-06-18 01:18 | Emergency (ER) | payer SELFPAY ==
[~2018-06-18 01:18] MED LIST changes: +ONDA4TAB PO
--- NOTE | 2018-06-18 01:26 | ER Report ---
History and Physical Time Seen By MD: 01:26 Hx. of Stated Complaint: HASN'T FELT WELL FOR A COUPLE DAYS. TODAY IT GOT WORSE WITH A LOT OF SOB. STATES HE FELT REALLY HOT EARLIER BUT DIDN'T TAKE TEMP HPI/ROS CHIEF COMPLAINT: cough HISTORY OF PRESENT ILLNESS: This is a 22 year old male. He has been coughing for about the last 5 days. He has had some runny nose and congestion. Sometimes coughing makes him gag and start throwing up. Having subjective fevers. He smokes. No history of asthma. No drug use. Taking over the counter cough meds. Worsened tonight, wheezing and feeling short of breath as well. Did not get a flu shot. Allergies: Coded Allergies: No Known Drug Allergies (Unverified , 06/18/18) Home Meds Active Scripts Prednisone (PREDNISONE) 20 Mg Tablet, 40 MG PO QDAY, #8 TAB 0 Refills Prov:KATHY ROGERS MD 06/18/18 Guaifenesin/Codeine (GUAIFENESIN-CODEINE SYRUP) 5 Ml Syrp, 5 ML PO Q6H PRN for COUGH, #120 ML 0 Refills Prov:KATHY ROGERS MD 06/18/18 Discontinued Scripts Ondansetron (ZOFRAN ODT) 4 Mg Tab.rapdis, 4 MG PO Q6H PRN for NAUSEA/VOMITING, #20 TAB.LISA 0 Refills Prov:EMY GARCIA OPERATION MANAGER- 05/12/18 Albuterol Sulfate 90 Mcg/Act (PROAIR HFA 90 MCG/ACT) 8.5 Gm Hfa.aer.ad, 2 PUFF IH Q4-6H PRN for asthma symptoms, #1 INHALER 1 Refill Prov:ANUPAMA HERNÁNDEZ DO 09/02/17 Reviewed Nurses Notes: Yes Hx Smoking: No Hx Substance Use Disorder: No Constitutional Vital Sign - Last 24 Hours 06/18/18 06/18/18 06/18/18 06/18/18 01:21 01:21 01:30 01:30 Temp 98.4 Pulse 104 Resp 20 B/P (MAP) 140/72 (94) 117/73 (88) Pulse Ox 85 90 O2 Delivery Room Air Nasal Cannula O2 Flow Rate 1.5 06/18/18 06/18/18 06/18/18 06/18/18 01:30 01:33 01:48 01:57 Pulse 106 109 110 Resp 16 B/P (MAP) 113/64 (80) Pulse Ox 89 90 06/18/18 06/18/18 06/18/18 06/18/18 02:00 02:03 02:18 02:30 Pulse 109 98 B/P (MAP) 112/58 (76) 117/65 (82) Pulse Ox 91 92 06/18/18 06/18/18 02:33 02:48 Pulse 99 107 Pulse Ox 91 90 Physical Exam General Appearance: The patient is alert. No acute distress. Eyes: Pupils are equal, round. No pallor, injection or icterus. ENT: Mucous membranes are moist. Normal oral mucosa. Posterior oropharynx has post nasal drainage and erythema, but no hypertrophy or exudates. Nasal mucosa with mucous and mild erythema. Normal tympanic membranes and canals. Neck: Supple and non tender. No lymphadenopathy. Respiratory: Lungs with wheezing and rhonchi. There are no retractions or accessory muscle use. Cardiovascular: Regular rate and rhythm. No murmurs, gallops or rubs. Normal capillary refill. Gastrointestinal: Abdomen is soft and non tender. Nondistended. Normal active bowel sounds. Neurological: Alert and oriented x3. No focal neurologic deficits Skin: Warm and dry. No rashes. DIFFERENTIAL DIAGNOSIS: After history and physical exam, differential diagnosis was considered for cough and subjective fevers, concerning for viral syndrome, bronchitis, influenza, pulmonary infectious process Medical Decision Making Data Points Laboratory Hematology Test 06/18/18 01:30 Influenza Virus Type A (PCR) Negative (NEGATIVE) Influenza Virus Type B (PCR) Negative (NEGATIVE) Chemistry Test 06/18/18 01:30 Influenza Virus Type A (PCR) Negative (NEGATIVE) Influenza Virus Type B (PCR) Negative (NEGATIVE) EKG/Imaging Imaging TWO VIEW CHEST 06/18/2018 1:56 AM. INDICATION: Cough, shortness of breath for several days. COMPARISON: 03/26/2018. FINDINGS: Lungs are well-expanded. The lungs are clear. No pneumothorax or pleural effusion. Pulmonary vasculature is unremarkable. Heart size is normal. IMPRESSION: No acute cardiopulmonary abnormality. Report Dictated By: Irineo Zuniga MD at 06/18/2018 2:06 AM ED Course/Re-evaluation ED Course Negative chest x-ray. Negative influenza. Improved with breathing treatment and cough medicine. Conservative management for upper respiratory infection thought to be viral process. Decision to Disposition Date: Jun 18, 2018 Decision to Disposition Time: 02:40 Depart Departure Latest Vital Signs Vital Signs Date Time Temp Pulse Resp B/P (MAP) Pulse Ox O2 Delivery O2 Flow Rate FiO2 06/18/18 02:48 107 90 06/18/18 02:30 117/65 (82) 06/18/18 01:30 16 06/18/18 01:30 Nasal Cannula 1.5 06/18/18 01:21 98.4 Impression: Primary Impression: Acute bronchitis Condition: Improved Disposition: HOME OR SELF-CARE New Scripts Prednisone (PREDNISONE) 20 Mg Tablet 40 MG PO QDAY, #8 TAB 0 Refills Prov: KATHY ROGERS MD 06/18/18 Guaifenesin/Codeine (GUAIFENESIN-CODEINE SYRUP) 5 Ml Syrp 5 ML PO Q6H PRN for COUGH, #120 ML 0 Refills Prov: KATHY ROGERS MD 06/18/18 Patient Instructions: Acute Bronchitis (ED) Additional Instructions: Rest and increase fluid intake. Take Guaifenesin with Codeine, one teaspoon every 4 hours as needed for severe cough. Take Prednisone 20mg tablets, 2 tablets once a day for 4 more days. Albuterol inhaler, 2 inhalations every 4 hours as needed for wheezing. Problem Qualifiers Primary Impression: Acute bronchitis Bronchitis organism: unspecified organism Qualified Codes: J20.9 - Acute bronchitis, unspecified KATHY ROGERS MD Jun 18, 2018 01:26
[2018-06-18] MEDS ORDERED: ALBUTEROL/IPRATROPIUM 3 ML NEB NEB ONE (01:30)
[2018-06-18] MEDS ORDERED: guaiFENesin/CODEINE 5 ML UDBTL PO ONE ×2 (01:35→02:40)
--- NOTE | 2018-06-18 02:12 | RADIOLOGY IMAGING REPORT ---
FACILITY: [facility] PATIENT NAME: Irineo Shepard : 1995 MR: [id number] V: [id number] EXAM DATE: ORDERING PHYSICIAN: KATHY ROGERS TECHNOLOGIST: Location: [facility] [place] Patient: Irineo Shepard : 1995 Visit/Account:[id number] Date of Sevice: 06/18/2018 TWO VIEW CHEST 06/18/2018 1:56 AM. INDICATION: Cough, shortness of breath for several days. COMPARISON: 03/26/2018. FINDINGS: Lungs are well-expanded. The lungs are clear. No pneumothorax or pleural effusion. Pulmo nary vasculature is unremarkable. Heart size is normal. IMPRESSION: No acute cardiopulmonary abnormality. Report Dictated By: Irineo Zuniga MD at 06/18/2018 2:06 AM Report E-Signed By: Irineo Zuniga MD at 06/18/2018 2:07 AM WSN:[id number]
[2018-06-18 02:30] VITALS: BP 117/65
[2018-06-18] MEDS ORDERED: ALBUTEROL 8 GM INHALER INH ONE (02:40)
[2018-06-18] MEDS ORDERED: predniSONE 20 MG TAB PO ONE (02:40)
[2018-06-18] MEDS ORDERED: ROBC PO (02:43)
[2018-06-18] MEDS ORDERED: PRED20TA6 PO (02:43)
== END 2018-06-18 02:46 | disposition home or self-care (01) ==
LOC: ER 02:02
DX: J20.9 Acute bronchitis, unspecified (principal)
CPT/HCPCS: 71046; 87502; 94640; 99283; J3535; J7512; J7620

== ENCOUNTER 2018-07-31 01:06 | Emergency (ER) | payer SELFPAY ==
[~2018-07-31 01:06] MED LIST changes: +ROBC PO
--- NOTE | 2018-07-31 01:13 | ER Report ---
History and Physical Time Seen By MD: 01:13 HPI/ROS History of "seasonal" wheezing. URI symptoms for 1-2 days. Now with wheezing. Never hospitalized or intubated. No fever/chills. No PE risk factors. Remainder of the 14 system rev: Yes Allergies: Coded Allergies: No Known Drug Allergies (Unverified , 06/18/18) Home Meds Active Scripts Prednisone (PREDNISONE) 20 Mg Tablet, 40 MG PO QDAY for 5 Days, #10 TAB Prov:GABINO DONAHUE MD 07/31/18 Reported Medications [dayquil] No Conflict Check 07/31/18 Discontinued Scripts Prednisone (PREDNISONE) 20 Mg Tablet, 40 MG PO QDAY, #8 TAB 0 Refills Prov:KATHY ROGERS MD 06/18/18 Guaifenesin/Codeine (GUAIFENESIN-CODEINE SYRUP) 5 Ml Syrp, 5 ML PO Q6H PRN for COUGH, #120 ML 0 Refills Prov:KATHY ROGERS MD 06/18/18 Hx Smoking: No Hx Substance Use Disorder: No Hx Alcohol Use: No Constitutional Vital Sign - Last 24 Hours 07/31/18 07/31/18 07/31/18 07/31/18 01:11 01:37 01:38 01:42 Temp 98.3 Pulse 106 107 110 Resp 22 18 16 B/P (MAP) 140/93 Pulse Ox 88 91 O2 Delivery Room Air Nasal Cannula O2 Flow Rate 1.0 07/31/18 07/31/18 07/31/18 01:43 02:09 02:10 Pulse 92 Resp 14 Pulse Ox 92 O2 Delivery Nasal Cannula O2 Flow Rate 2.0 1.0 Physical Exam General Appearance: The patient is alert, has no immediate need for airway protection and no current signs of toxicity. Eyes: Pupils equal and round no injection. Respiratory: Chest is non tender, diffuse wheezing Cardiac: regular rate and rhythm Gastrointestinal: Abdomen is soft and non tender, no masses, bowel sounds normal. Extremities have full range of motion and are non tender. Skin: No rashes or lesions. DIFFERENTIAL DIAGNOSIS: After history and physical exam differential diagnosis was considered for shortness of breath including but not limited to pulmonary infectious process, COPD, asthma, pulmonary embolus and congestive heart failure. Medical Decision Making EKG/Imaging Imaging X-ray: CXR was obtained. I viewed the images myself on the PACS system. My interpretation of the images is: No infiltrate, no PTX The radiologist interpretation had no clinically significant variation from this interpretation. ED Course/Re-evaluation ED Course Uncomplicated URI with subsequent wheezing. No abx needed. Given duoneb and solumedrol. Will d/c with steroid burst and albuterol MDI. CXR no pna. No chest pain or PE risk factors. Decision to Disposition Date: Jul 31, 2018 Decision to Disposition Time: 02:07 Depart Departure Latest Vital Signs Vital Signs Date Time Temp Pulse Resp B/P (MAP) Pulse Ox O2 Delivery O2 Flow Rate FiO2 07/31/18 02:10 92 Nasal Cannula 1.0 07/31/18 02:09 92 14 07/31/18 01:11 98.3 140/93 Impression: Primary Impression: Acute bronchitis Condition: Improved Disposition: HOME OR SELF-CARE New Scripts Prednisone (PREDNISONE) 20 Mg Tablet 40 MG PO QDAY for 5 Days, #10 TAB Prov: GABINO DONAHUE MD 07/31/18 Patient Instructions: Wheezing (ED) Problem Qualifiers Primary Impression: Acute bronchitis Bronchitis organism: unspecified organism Qualified Codes: J20.9 - Acute bronchitis, unspecified GABINO DONAHUE MD Jul 31, 2018 01:13
[2018-07-31] MEDS ORDERED: dayquil (01:15)
[2018-07-31] MEDS ORDERED: NS(*) 0.9% 1000 ML BAG 1,000 ML IV ONE (01:25)
[2018-07-31] MEDS ORDERED: methylPREDNIS SUCC 125 MG/2ML IVP ONE (01:25)
[2018-07-31] MEDS ORDERED: ALBUTEROL/IPRATROPIUM 3 ML NEB NEB ONE (01:25)
[2018-07-31] MEDS ORDERED: ALBUTEROL 8 GM INHALER INH ONE (01:50)
[2018-07-31] MEDS ORDERED: ALBUTEROL 2.5 MG/3 ML NEB NEB ONE (01:50)
[2018-07-31 02:00] VITALS: BP 126/73
[2018-07-31] MEDS ORDERED: PRED20TA6 PO (02:09)
--- NOTE | 2018-07-31 02:11 | RADIOLOGY IMAGING REPORT ---
FACILITY: [facility] - [place] PATIENT NAME: Irineo Shepard : 1995 MR: [id number] V: [id number] EXAM DATE: ORDERING PHYSICIAN: GABINO DONAHUE TECHNOLOGIST: [place] [facility] [place]: Irineo Shepard : 1995 Visit/Account:[id number] Date of Sevice: 07/31/2018 CHEST PA LAT HISTORY: Shortness of breath and wheezing. History of smoking. COMPARISON: 06/18/2018 and studies dating to 05/24/2016. TECHNIQUE: PA and lateral views of the chest. FINDINGS: Pulmonary/pleura: Lungs are clear. There is no pneumothorax or pleural effusion. Cardiomediastinal: Cardiac and mediastinal silhouettes are within normal limits. Bones/soft tissues: No acute osseous abnormality. There is mild degenerative change of the spine. The visible abdomen is normal. IMPRESSION: 1. No acute cardiopulmonary process. Report Dictated By: Rosalie Christianson at 07/31/2018 2:06 AM Report E-Signed By: Rosalie Christianson at 07/31/2018 2:07 AM WSN:[id number]
== END 2018-07-31 02:22 | disposition home or self-care (01) ==
LOC: ER 01:26
DX: J20.9 Acute bronchitis, unspecified (principal)
CPT/HCPCS: 71046; 94640; 96361; 96374; 99284; J2930; J3535; J7030; J7613; J7620